=== PATIENT | female | born 1945 | race Caucasian/White ===

== ENCOUNTER → 2024-08-17 09:56 | Outpatient (REF) | payer MEDICARE, OTHER, SELFPAY | LOC: RAD 09:56 | PROVIDERS: ATTENDING PHYSICIAN Student in an Organized Health Care Education/Training Program; FAMILY PHYSICIAN Family Medicine | DX: I73.9 Peripheral vascular disease, unspecified (principal) | CPT/HCPCS: 93923; 93925 ==

== ENCOUNTER 2025-05-06 12:44 | Emergency (ER) | payer MEDICARE, OTHER, SELFPAY ==
[2025-05-06 12:48] VITALS: BP 158/88
[2025-05-06 13:09] LABS: Hematocrit 40.5 % (37.0-47.0); Hemoglobin 14.0 g/dL (12.0-16.0); Mean Corp Hgb Conc. 34.6 g/dL (33.0-37.0); Mean Corpuscular Volume 86.7 fL (81.0-99.0); Nucleated Red Blood Cells % 0 %; Platelet Count 165 10^3/uL (130-400); Red Cell Dist. Width 12.6 % (11.5-14.5)
[2025-05-06 13:28] LABS: ALT (SGPT) 22 U/L (0-35); AST (SGOT) 29 U/L (14-36); Albumin 4.9 g/dl (3.5-5.0); Alkaline Phosphatase 61 U/L (38-126); Blood Urea Nitrogen 19 mg/dl (7-17); Calcium 10.7 mg/dl (8.4-10.2); Carbon Dioxide 23 mmol/L (22-30); Chloride 108 mmol/L (98-107); Glucose 97 mg/dl (70-99); Lipase 104 U/L (23-300); Potassium 4.9 mmol/L (3.5-5.1); Sodium 140 mmol/L (135-145); Total Protein 7.5 g/dl (6.3-8.2); eGFR > 60.00
[2025-05-06 17:20] VITALS: BMI 31.5
[2025-05-06 17:23] VITALS: BP 173/64
[2025-05-06 17:44] LABS: Urine Character Clear (Clear)
--- NOTE | 2025-05-06 17:50 | ED.GENMED ---
History of Present Illness
General
Chief Complaint: Abdominal Pain
Source: patient
Exam Limitations: none
Time Seen by Provider: 05/06/25 17:00
History of Present Illness
History of Present Illness:
79yoF with a history of GERD presenting for evaluation of abdominal pain. Patient had a fall about 1.5 weeks ago and has been having some lower back discomfort since then. She took naproxen for a week due to her pain which she stopped about 2 to 3
days ago. She reports abdominal pain which began 3 days ago. Pain originates in the right lower back and radiates to the right lower quadrant and across the abdomen. She is also reporting increased gas and intermittent diarrhea. Stool is
described as brown with black spots mixed in. She did take 2 doses of Pepto-Bismol for her symptoms. She denies any fevers, vomiting, chest pain, shortness of breath. She does not take any blood thinners. No previous abdominal surgeries.
Phy Exam
General Physical Exam
General Presentation: well appearing and no apparent distress
General Skin: warm and dry
General Habitus: normal
General Mental: alert
ENT Exam
ENT Exam: normocephalic
Cardiovascular Exam
Cardiovascular Exam: regular rate/rhythm
Pulmonary Exam
Pulmonary Exam: lungs clear, no respiratory distress, no rales, no crackles, no rhonchi and no wheezing
Gastrointestinal Exam
Gastrointestinal Exam: soft, non distended and other (+Mild tenderness in epigastrium and LUQ. Abdomen soft, non-distended. No rebound or guarding.)
Stool: other (Stool brown, hemoccult negative)
Neurological Exam
Neurological Exam: alert
[place] Coma Scale
Eye Opening: Spontaneous
Verbal Response: Oriented
Motor Response: Obeys Commands
GCS Total Score: 15
Skin Exam
Skin Exam: normal color and warm/dry
Psychiatric Exam
Psychiatric Exam: normal mood/affect
Course
Orders/Labs/Results
Orders:
Orders
05/06/25 12:59
Comprehensive Metabolic Panel Urgent
Lipase Urgent
05/06/25 13:00
Type+Screen Urgent
Complete Blood Count/With Diff Urgent
05/06/25 17:21
ABO2 Urgent
BBK Wristband Number:
Associate notified that ABO2 has been ordered: [id number]
Date: 05/06/25
Time: 13:11
Refrigeration Installer ID: US
Urinalysis Reflex To Culture Urgent
Date Specimen was Collected: 05/06/25
Time Specimen was Collected: 17:20
05/06/25 17:49
CT Abd/pelvis W Iv Cont Urgent
Comment:
Reason For Exam: Epigastric, LUQ pain, dark stool
05/06/25 20:03
Acetaminophen [Tylenol] 1,000 mg PO NOW STA
Famotidine [Pepcid] 20 mg IV NOW STA
Pantoprazole [Protonix IV] 40 mg IV NOW STA
Abnormal Lab Results
05/06/25 05/06/25
12:59 13:00
MPV 11.3 H fL
(7.4-10.4)
Chloride 108 H mmol/L
(98-107)
BUN 19 H mg/dl
(7-17)
Calcium 10.7 H mg/dl
(8.4-10.2)
05/06/25 13:00
05/06/25 12:59
Vital Signs
Initial and Last Documented VS:
Initial Vital Signs
Temp Pulse Resp BP Pulse Ox
97.7 F 85 18 158/88 95
05/06/25 12:48 05/06/25 12:48 05/06/25 12:48 05/06/25 12:48 05/06/25 12:48
Last Documented Vital Signs
Temp Pulse Resp BP Pulse Ox
98.3 F 67 16 173/64 98
05/06/25 17:23 05/06/25 17:23 05/06/25 17:23 05/06/25 17:23 05/06/25 17:52
MDM/Problems Addressed
Differential Diagnosis Includes:
79yoF here with abd pain and dark stools x 3 days. Has been taking Pepto-Bismol for symptoms. Hx of GERD and was taking naproxen last week. VSS. She is well-appearing no distress. No signs of peritonitis on abdominal exam. Stool obtained on
digital rectal exam is brown and Hemoccult testing is negative. Differential diagnosis includes but is not limited to: Gastritis, PUD, dark stool related to Pepto-Bismol, colitis
Initial ED plan:
Lab work obtained in triage is unremarkable and hemoglobin is 14. UA bland. Will check CT abdomen with IV contrast.
*Pulse Oximetry
SaO2: 98
Oxygen Mode of Delivery: Room air
Patient hypoxic: no (95%)
*Critical Care Note
Total Time (30-74mins, 75-104mins- exclusive of procedures): Not Applicable
Update Note
Update Note:
CT is negative for acute findings. There are several incidental findings including an adrenal mass most likely a benign adenoma as well as a right ovarian cyst. Patient informed of results and was given a copy of the radiology report. No
indication for hospitalization. She does take omeprazole at home and believes her dose is 10 mg daily. Will prescribe course of 20mg omeprazole. She was advised to f/u closely with her PCP and ED return precautions reviewed. Patient in agreement
with plan and was discharged in stable condition.
ED Attending Note
-
Portions of this chart may have been created with voice recognition software.� Occasional wrong word or��sound alike� substitutions may have occurred due to the inherent limitations of voice recognition software.
Discharge Plan
Departure
Patient Disposition: Home (Routine Discharge)
Date of Disposition: 05/06/25
Time of Disposition: 21:08
Patient with high blood pressure during this ER visit?: Yes
Discharge Problem:
Nonspecific abdominal pain, Cyst of right ovary, Left adrenal mass
Instructions: Abdominal Pain
Prescriptions:
New
omeprazole 20 mg capsule,delayed release(DR/EC)
20 mg PO DAILY Qty: 30 0RF
Referrals:
Darshana Evans MD [Family Provider]
Genia Holt MD [Active, Gynecology]
Activity Restrictions/Additional Instructions:
Take omeprazole as prescribed. You may take Tylenol as needed for pain. Avoid NSAIDs (Aleve, Advil, etc.).
Please follow-up with your family doctor on Friday. Return to the ER immediately with any new or worsening symptoms.
Interventions
Interventions:
*Risk Screen - Suicide Last Done: 05/06/25 12:53
*General Assessment Last Done: 05/06/25 12:48
*Neglect/Abuse Screening Last Done: 05/06/25 12:48
*ED- Fall Risk Assessment Last Done: 05/06/25 17:27
*ED COVID-19 Vaccine History Last Done: 05/06/25 17:27
*Nursing Disposition Last Done: 05/06/25 21:46
LH-Vtqybw-Wmvmynsbrx Assessment Last Done: 05/06/25 17:28
Discharge Date and Time
Discharge Date/Time: 05/06/25 21:47
Print Language: CUBAN
--- NOTE | 2025-05-06 19:15 | EDRN ---
Report recieved, introduced myself to patient, she ambulated into the restroom and back in bed and ready for CT
[2025-05-06] MEDS: TYLENOL 1000 MG PO (20:08)
[2025-05-06] MEDS: PROTONIX IV 40 MG IV (20:10)
[2025-05-06] MEDS: PEPCID 20 MG IV (20:11)
== END 2025-05-06 21:47 | disposition home or self-care (01) ==
LOC: EMR 12:44
PROVIDERS: Emergency Medicine; Physician Assistant; EMERGENCY PHYSICIAN Emergency Medicine; FAMILY PHYSICIAN Family Medicine
DX: R10.9 Unspecified abdominal pain (principal); N83.201 Unspecified ovarian cyst, right side; E27.9 Disorder of adrenal gland, unspecified; R03.0 Elevated blood-pressure reading, without diagnosis of hypertension; K21.9 Gastro-esophageal reflux disease without esophagitis
CPT/HCPCS: 99285; 96374; 96375; 74177; 80053; 81003; 83690; 85025; 86850; 86900; 86901; Q9967

== ENCOUNTER → 2025-06-14 10:31 | Outpatient (REF) | payer MEDICARE, OTHER, SELFPAY | LOC: HWRAD 10:31 | PROVIDERS: ATTENDING PHYSICIAN Family Medicine; FAMILY PHYSICIAN Family Medicine | DX: N83.201 Unspecified ovarian cyst, right side (principal) | CPT/HCPCS: 76830; 76856 ==